=== PATIENT | male | born 1975 | race Caucasian/White ===

== ENCOUNTER 2022-08-17 19:23 | Emergency (ER) | payer BC, SELFPAY ==
[2022-08-17] VITALS (8 sets, daily range): BP systolic 138–141; BP diastolic 88–92; PULSE 72–93; RESP 15–25; TEMP 36.8; O2SAT 96–99
--- NOTE | ~2022-08-17 | XR_ITS ---
EXAMINATION: XR chest 2V Exam Date/Time: 08/17/2022 20:27 CORPORATE DEVELOPMENT ANALYST HISTORY: L.SIDE CHEST ARM PAIN FOR A FEW DAYS. Comparison: None available. RESULT: Lines, tubes, and devices: None. Lungs and pleura: Clear. Cardiomediastinal silhouette: Normal. Other: No acute osseous or upper abdominal finding. IMPRESSION: No acute cardiopulmonary process. Reviewed, dictated and finalized at location K. ORATE DEVELOPMENT ANALYST
--- NOTE | 2022-08-17 19:25 | ECG_ITS ---
Measurements Intervals [place] Rate: 98 P: 41 MT: 162 QRS: -5 QRSD: 94 T: 6 QT: 311 QTc: 397 Interpretive Statements SINUS RHYTHM BASELINE ARTIFACT NORMAL ECG NO PREVIOUS ECG AVAILABLE FOR COMPARISON Electronically Signed On 08-18-2022 17:40:52 INFORMATION TECHNOLOGY CONSULTANT by Good Rayo M.D.
[2022-08-17 20:00] LABS: Basophils Absolute Auto 0.1 K/mm3 (0.0-0.1); Eosinophils Absolute Auto 0.2 K/mm3 (0-0.3); Eosinophils Percent Auto 1.9 % (0-4.4); Hemoglobin 17.4 g/dL (14.0-18.0); Immature Granulocyte Absolute 0.04 K/mm3 (0.00-0.031); Immature Granulocyte Percent A 0.5 % (0-0.5); Lymphocytes Percent Auto 17.9 % (18.3-44.2); Mean Corpuscular HGB Conc 34.1 g/dl (32-36); Mean Corpuscular Hemoglobin 32.2 pg (26-34); Mean Corpuscular Volume 94.4 fl (80-100); Mean Platelet Volume 10.4 fl (7.4-10.4); Monocytes Absolute Auto 0.6 K/mm3 (0.1-0.6); Monocytes Percent Auto 6.8 % (2.6-8.5); Neutrophils Percent Auto 71.9 % (45.5-73.1); Platelet Count Result 200 k/mm3 (150-375); Red Cell Distribution Width 13.6 % (11.5-14.5); White Blood Count 8.4 K/mm3 (4.5-10.0)
[2022-08-17 20:09] LABS: Partial Thromboplastin Time 25.1 SECONDS (22.3-36.8); Prothrombin Time 13.2 Seconds (11.1-14.7)
[2022-08-17 20:17] LABS: Alanine Aminotransferase 44 U/L (6-50); Albumin Level 4.5 g/dL (3.5-5.1); Alkaline Phosphatase 58 U/L (38-126); Anion Gap 6 mmol/L (8-16); Aspartate Amino Transferase 36 U/L (17-59); Bilirubin,Total 0.4 mg/dL (0.2-1.3); Blood Urea Nitrogen 14 mg/dL (9-20); Carbon Dioxide 26 mmol/L (22-30); Chloride 103 mmol/L (98-107); Estimated Glomerular Filt Rate > 60; Glucose 107 mg/dL (65-110); Lipase 136 U/L (23-300); Potassium 4.1 mmol/L (3.4-5.0); Sodium 135 mmol/L (137-145)
[2022-08-17 20:29] LABS: Troponin I < 0.012 ng/mL (0.000-0.034)
--- NOTE | 2022-08-17 22:03 | ED.CHESTPAIN ---
HPI - Chest Pain General Chief Complaint: Chest Pain Stated Complaint: chest pain approx 1800, left arm pain x 2 weeks Time Seen by Provider: 08/17/22 21:43 History of Present Illness HPI narrative: This is a 47-year-old male with past medical history of depression, presents emergency department complaining of chest pain. He states approximately 4 hours ago, he noted pressure-like left-sided chest pain without radiation. He states it began at a 6 out of 10 and has improved to a 1 out of 10 without intervention. He denies associated nausea, vomiting, difficulty breathing or lightheadedness. He states he has had intermittent left arm and chest pain for the past few weeks without obvious aggravating or alleviating factors. He has no other complaints today. Related Data Allergies Allergy/AdvReac Type Severity Reaction Status Date / Time No Known Allergies Allergy Verified 08/17/22 21:34 Review of Systems Review of Systems: CONSTITUTIONAL: Denies fever, chills, or sweats. EYES: Denies visual changes, redness, or discharge. ENT: Denies rhinorrhea, congestion, sore throat, or otalgia. CARDIOVASCULAR: Left-sided chest pressure denies palpitations, or edema. RESPIRATORY: Denies cough or dyspnea. GASTROINTESTINAL: Denies abdominal pain, nausea, vomiting, or diarrhea. SKIN: Denies rash or itching. MUSCULOSKELETAL: Denies back pain, joint pain, or myalgia. NEUROLOGIC: Denies headache, numbness, dizziness, or weakness. PSYCHIATRIC: Denies anxiety or depression. Denies SI/HI PMFSH Past Medical History Medical History (Updated 08/17/22 @ 22:06 by Beny Shah MD) Depression Surgical History Surgical History (Updated 08/17/22 @ 22:06 by Beny Shah MD) No pertinent past surgical history Family History Family History (Updated 08/17/22 @ 22:06 by Beny Shah MD) Grandparent Acute myocardial infarction Social History Social History (Updated 08/17/22 @ 22:06 by Beny Shah MD) Smoking status: Never smoker Alcohol intake: never Substance use: current Substance use type: marijuana Exam Narrative: GENERAL: Well-developed, well-nourished, and in no acute distress. HEAD: Normocephalic, atraumatic. EYES: PERRLA and EOMI. ENT: Nares clear, no rhinorrhea or epistaxis. Mucous membranes moist. Oropharynx without tonsillar hypertrophy exudate or other lesions. NECK: Supple. No adenopathy or masses. No carotid bruits or JVD CHEST: Clear to auscultation. No respiratory distress. No wheezes rales or rhonchi HEART: Regular rate and rhythm. No murmur heard. Normal peripheral pulses. ABDOMEN: Soft, nontender, nondistended, normal active bowel sounds. 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 No edema. SKIN: Warm, dry, no rash. NEURO: No focal deficits. Alert and oriented x3. PSYCH: Normal mood and affect. Course Course Emergency Course: 00:05 - HEART score 2. 2 troponins negative. EKG unremarkable. Labs grossly unremarkable and chest x-ray negative for acute cardiopulmonary abnormality. Discussed findings and recommendations for outpatient follow-up. Discussed return emergent precautions including signs/symptoms of ACS and respiratory distress. The patient voiced understanding and is comfortable with the plan. All questions answered to his satisfaction. Vital Signs Vital signs: Vital Signs Temperature 98.3 F 08/17/22 20:19 Pulse Rate 93 08/17/22 20:19 Respiratory Rate 18 08/17/22 20:19 Blood Pressure 138/92 H 08/17/22 20:19 Pulse Oximetry 99 08/17/22 20:19 Oxygen Delivery Room Air 08/17/22 20:19 Temperature 98.3 F 08/17/22 20:19 Pulse Rate 82 08/17/22 23:15 Respiratory Rate 16 08/17/22 23:15 Blood Pressure 141/88 H 08/17/22 21:34 Pulse Oximetry 96 08/17/22 23:15 Oxygen Delivery Room Air 08/17/22 20:19 MDM - Chest Pain MDM Narrative Medical decision making narrative: Plan:
[2022-08-17 23:08] LABS: Troponin I < 0.012 ng/mL (0.000-0.034)
== END 2022-08-18 00:24 | disposition home or self-care (01) ==
PROVIDERS: Emergency Medicine; Emergency Provider Preventive Medicine Aerospace Medicine; PCP Hospitalist
DX: R07.9 Chest pain, unspecified (principal)
CPT/HCPCS: 36415; 71046; 80053; 83690; 84484; 85025; 85610; 85730; 93005; 99284

== ENCOUNTER 2023-11-25 08:44 | Outpatient (CLI) | payer BC, SELFPAY ==
--- NOTE | 2023-11-25 | ECG_ITS ---
Measurements Intervals [place] Rate: 54 P: 46 ND: 180 QRS: 0 QRSD: 102 T: 16 QT: 408 QTc: 389 Interpretive Statements SINUS BRADYCARDIA COMPARED TO ECG 08/17/2022 19:44:26 SINUS BRADYCARDIA NOW PRESENT Electronically Signed On 11-25-2023 11:05:02 CDT by Lico Pruett M.D.
[2023-11-25 09:24] LABS: Hematocrit 49.6 % (42.0-52.0); Hemoglobin 16.4 g/dL (14.0-18.0); Mean Corpuscular HGB Conc 33.1 g/dl (32-36); Mean Corpuscular Volume 93.8 fl (80-100); Mean Platelet Volume 10.8 fl (7.4-10.4); Platelet Count Result 246 k/mm3 (150-375); Red Blood Count 5.29 M/mm3 (4.6-6.20); Red Cell Distribution Width 11.8 % (11.5-14.5); White Blood Count 10.7 K/mm3 (4.5-10.0)
[2023-11-25 09:35] LABS: Alanine Aminotransferase 23 U/L (6-50); Albumin Level 4.5 g/dL (3.5-5.1); Alkaline Phosphatase 88 U/L (38-126); Anion Gap 4 mmol/L (4-12); Aspartate Amino Transferase 24 U/L (17-59); Bilirubin,Total 0.3 mg/dL (0.2-1.3); Blood Urea Nitrogen 21 mg/dL (9-20); Calcium 9.6 mg/dL (8.4-10.2); Carbon Dioxide 28 mmol/L (22-30); Chloride 105 mmol/L (98-107); Estimated Glomerular Filt Rate > 60; Glucose 108 mg/dL (65-110); Sodium 137 mmol/L (137-145)
== END 2023-11-25 08:45 | disposition home or self-care (01) ==
LOC: ANHLAB 08:47
PROVIDERS: PCP Hospitalist; Visit Provider Orthopaedic Surgery
DX: S83.412A Sprain of medial collateral ligament of left knee, initial encounter (principal); Z01.810 Encounter for preprocedural cardiovascular examination; Z01.811 Encounter for preprocedural respiratory examination; X58.XXXA Exposure to other specified factors, initial encounter; Z01.812 Encounter for preprocedural laboratory examination; Z01.818 Encounter for other preprocedural examination
CPT/HCPCS: 36415; 80053; 85027; 93005